=== PATIENT | male | born 1980 | race Caucasian/White ===

== ENCOUNTER 2025-05-08 01:42 | Emergency (ER) | payer OTHER, SELFPAY ==
[2025-05-08] VITALS (8 sets, daily range): BP systolic 120–144; BP diastolic 83–91; PULSE 95–112; RESP 13–40; TEMP 36.7; O2SAT 93–98; BMI 23.3
--- OUTSIDE RECORDS SUMMARY | 2025-05-08 01:46 | XMS_ITS | Clinical Summary ---
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 25 Tablet 4 Active methylPREDNISolo ne (Medrol (Paul)) 4 mg tabletIndication s:Cough, unspecified type,Wheezing,SO B (shortness of breath) Take by mouth as instructed per packaging. 21 Tablet 5 Active albuterol HFA 90 mcg/actuation inhalerIndicatio ns:Wheezing,SOB (shortness of breath) Inhale 1-2 Puffs by mouth every 4 hours if needed for Shortness Of Breath or Wheezing. 1 Each 5 Active Active Problems Problem Noted Date Diagnosed Date SCREENING FOR VENEREAL DISEASE 04/24/2001 TOBACCO USE WARTS - NON GENITAL Immunizations Immunization Administration Dates Next Due DTP 03/29/1984,07/29/1982,05/27/1982 MMR 03/29/1984 Oral Polio Vaccine 03/29/1984,05/27/1982 Family History Medical History Relation Name Comments Hyperlipidemia Father Relation Name Status Comments Father Alive Mother Alive Social History Tobacco Use Types Packs/Day Years Used Date Smoking Tobacco: Every Day Cigarettes Smokeless Tobacco: Never Tobacco Cessation:Ready to Q uit: Not Asked; Counseling Given: Not Answered Alcohol Use Standard Drinks/Week Comments Yes 0 (1 standard drink = 0.6 oz pur e alcohol) 2-3 beers/night Social Connections Answer Date Recorded Do you often feel lonely or isolated from those around you? 0 06/22/2024 Financial Resource Strain Answer Date R ecorded Difficulty of Paying Living Expenses 3 08/18/2024 Difficulty of Paying Living Expenses Not on file 08/18/2024 Food Insecurity Answer Date Recorded Do you worry your food will run out before you are able to buy more? 1 06/22/2024 Transportation Needs Answer Date Record ed Does lack of transportation keep you from medica l appointments? 1 06/22/2024 Does lack of transportation keep you from work, meetings or getting things that you need? 1 06/22/2024 Housing Stability Answer Date Recorded What is your housing situation today? 1 06/22/2024 Utilities Answer Date Recorded Do you have trouble paying f or utilities (for example, heat, electricity, water, phone)? 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 Gender Identity Not on file Sexual Orientation Not on file Obstetrics History Last Filed Vital Signs Vital Sign Reading Time Taken Comments Blood Pressure 129/89 12/16/2024 3:29 PM CDT Pulse 83 12/16/2024 4:17 PM CDT Temperature 36.4 C (97.5 F) 12/16/2024 3:29 PM CDT Respiratory Rate 16 12/16/2024 3:29 PM CDT Oxygen Saturation 95% 12/16/2024 4:17 PM CDT Inhaled Oxygen Concentration - - Weight 70.3 kg (155 lb) 12/16/2024 3:29 PM CDT Height 168.9 cm (5' 6.5) 08/29/2009 4:39 PM 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 Body Mass Index - - Plan of Treatment Health Maintenance Due Date Last Done Comments Tetanus booster 1992 Depression screening for age 12+ 1993 HIV for age 15-65 1996 BMI (ht and wt on same day) for age 18+ 12/28/1999 Hepatitis C screening for age 18-79 12/28/1999 Hepatitis B series for 19+ ( 1 of 3 - 19+ 3-dose series) 2000 Pneumococcal series for age 6-49 (1 of 2 - PCV) 2000 HPV series for age 9-45 (1 - 3-dose SCDM series) 2008 Lipids for age 35-44 2016 COVID-19 vaccine series ( season) 2025 06/17/2021, 05/21/2021 Influenza Vaccine (#1) 2025 RSV vaccine for adults or pr egnancy (1 - 1-dose 75+ series) 2056 Insurance [facility] Care Teams Commodities Manager Relationship Specialty Start Date End Date Pcp, No . PCP - General 08/29/09
--- OUTSIDE RECORDS SUMMARY | 2025-05-08 01:46 | XMS_ITS | Clinical Summary ---
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
--- NOTE | 2025-05-08 02:00 | CRLHL7_ITS ---
For Patients: As a result of the Century Cures Act, medical imaging exams and procedure reports are released immediately into your electronic medical record. You may view this report before your referring provider. If you have questions, please contact your health care provider. Indication: Trauma Technique: Noncontrast CT through the thoracic spine with multiplanar reformats Comparison: None Findings: Alignment: Mild leftward spinal curvature. Bones: No acute thoracic vertebral fracture. No lytic or blastic lesion. Thoracic levels: No acute abnormality appreciated. Mild spondylosis. Soft tissues: No acute paraspinal abnormality appreciated. Impression: No acute thoracic vertebral abnormality appreciated. Please note that all CT scans at this facility use dose modulation, iterative reconstruction, and/or weight-based dosing when appropriate to reduce radiation dose to as low as reasonably achievable. Dictated by Davon Cruz MD @ 05/08/2025 3:03:37 AM (Electronically Signed)
--- NOTE | 2025-05-08 02:00 | CRLHL7_ITS ---
For Patients: As a result of the Century Cures Act, medical imaging exams and procedure reports are released immediately into your electronic medical record. You may view this report before your referring provider. If you have questions, please contact your health care provider. Indication: Trauma Technique: Noncontrast CT through the cervical spine with multiplanar reformats Comparison: None Findings: Alignment: No significant malalignment appreciated. Bones: No acute fracture. No lytic or blastic lesion. Cervical levels: No acute abnormality appreciated. Fzaz-lo-ofcelkti spondylosis. Soft tissues: No acute abnormality appreciated. Impression: No acute abnormality appreciated. Please note that all CT scans at this facility use dose modulation, iterative reconstruction, and/or weight-based dosing when appropriate to reduce radiation dose to as low as reasonably achievable. Dictated by Davon Cruz MD @ 05/08/2025 2:49:27 AM (Electronically Signed)
--- NOTE | 2025-05-08 02:00 | CRLHL7_ITS ---
For Patients: As a result of the Century Cures Act, medical imaging exams and procedure reports are released immediately into your electronic medical record. You may view this report before your referring provider. If you have questions, please contact your health care provider. Indication: Trauma Technique: Postcontrast CT of the chest, abdomen, and pelvis with multiplanar reformats following 72 mL Isovue 370 IV. Comparison: None Findings: Chest: Lungs: No consolidation. No effusion. No pneumothorax. Mediastinum: No acute abnormality appreciated. Lymph nodes: No gross lymphadenopathy. Soft tissues: No acute abnormality appreciated. Bones: No acute abnormality appreciated. Abdomen and Pelvis: Hepatobiliary: No significant parenchymal abnormality is appreciated. Spleen: Unremarkable. Pancreas: No acute abnormality appreciated. Adrenal glands: No acute abnormality appreciated. Kidneys: No significant parenchymal abnormality appreciated. No visualized calculi. No hydronephrosis. Bowel: No obstruction. No focal perienteric or pericolonic stranding is appreciated. The appendix is visualized and appears unremarkable. Vascular: No acute abnormality appreciated. Trace atherosclerosis. Lymph nodes: No gross lymphadenopathy. Peritoneum: No free air. No free fluid. : No acute abnormality appreciated. Soft tissues: No acute abnormality appreciated. Bones: No acute fracture. No lytic or blastic lesion. Impression: No acute abnormality appreciated. Please note that all CT scans at this facility use dose modulation, iterative reconstruction, and/or weight-based dosing when appropriate to reduce radiation dose to as low as reasonably achievable. Dictated by Davon Cruz MD @ 05/08/2025 3:09:15 AM (Electronically Signed)
--- NOTE | 2025-05-08 02:00 | CRLHL7_ITS ---
For Patients: As a result of the Century Cures Act, medical imaging exams and procedure reports are released immediately into your electronic medical record. You may view this report before your referring provider. If you have questions, please contact your health care provider. Indication: Trauma Technique: Noncontrast CT through the lumbar spine with multiplanar reformats Comparison: None Findings: Alignment: No significant malalignment appreciated. Bones: No acute lumbar vertebral fracture. No lytic or blastic lesion. Lumbar levels: No acute abnormality appreciated. Mild spondylosis. Soft tissues: No acute paraspinal abnormality appreciated. Impression: No acute lumbar vertebral abnormality appreciated. Please note that all CT scans at this facility use dose modulation, iterative reconstruction, and/or weight-based dosing when appropriate to reduce radiation dose to as low as reasonably achievable. Dictated by Davon Cruz MD @ 05/08/2025 3:04:29 AM (Electronically Signed)
--- NOTE | 2025-05-08 02:00 | CRLHL7_ITS ---
For Patients: As a result of the Cures Act, medical imaging exams and procedure reports are released immediately into your electronic medical record. You may view this report before your referring provider. If you have questions, please contact your health care provider. Indication: Trauma Technique: Noncontrast CT through the head with multiplanar reformats Comparison: None Findings: Brain: No acute hemorrhage. No acute infarct. No significant mass effect or midline shift. No gross evidence of a mass lesion or cerebral edema. Ventricles: No acute abnormality appreciated. Orbits, sinuses, mastoids: No acute abnormality appreciated. Calvarium and soft tissues: Left frontal scalp contusion no underlying fracture appreciated. Impression: Left frontal scalp contusion, no other acute abnormality appreciated. Please note that all CT scans at this facility use dose modulation, iterative reconstruction, and/or weight-based dosing when appropriate to reduce radiation dose to as low as reasonably achievable. Dictated by Davon Cruz MD @ 05/08/2025 2:45:52 AM (Electronically Signed)
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
[2025-05-08 02:07] LABS: Hematocrit* 44.0 % (37.0-53.0); Hemoglobin* 15.1 gm/dL (13.5-17.5); Immature Granulocytes Abs Auto 0.03 K/uL (0.00-0.30); Immature Granulocytes Pct Auto 0.3 %; Lymphocytes Absolute Auto 3.20 K/uL (0.90-2.90); Mean Corpuscular HGB Conc 34 gm/dL (32-36); Mean Corpuscular Hemoglobin 34 pg (26-34); Mean Corpuscular Volume 98 fL (80-100); RDW Coefficient of Variation % 12.1 % (11.5-15.5); Red Blood Count* 4.47 m/uL (4.30-5.90); White Blood Count* 9.44 K/uL (4.50-11.00)
[2025-05-08 02:11] LABS: Slide Review Reflex No
[2025-05-08 02:15] LABS: Albumin* 4.8 g/dL (3.3-5.0); Chloride* 102 mmol/L (96-114); Potassium* 3.7 mmol/L (3.6-5.1); Sodium* 141 mmol/L (135-149)
[2025-05-08 02:17] LABS: Blood Urea Nitrogen* 10 mg/dL (5-24); Creatinine* 0.7 mg/dL (0.5-1.5); Est. Creatinine Clearance* 127.22; Estimated Glomerular Filt Rate 117 ml/min
[2025-05-08 02:18] LABS: Alanine Aminotransferase* 42 U/L (4-50); Alkaline Phosphatase* 63 U/L (40-150); Anion Gap 14 mEq/L (7-15); Aspartate Amino Transferase* 63 U/L (12-35); Bilirubin Total* 0.5 mg/dL (0.1-1.5); Calcium* 8.8 mg/dL (8.4-10.6); Carbon Dioxide* 25 mmol/L (20-32); Glucose* 111 mg/dL (60-115); INR 0.90 (0.91-1.10); Prothrombin Time 12.9 Seconds; Total Protein* 8.5 g/dL (6.0-8.3)
[2025-05-08 02:28] LABS: Ethanol* 0.31 % (0.01-0.03)
--- NOTE | 2025-05-08 02:45 | ED.NURSE ---
pt wounds cleaned and irrigated.
--- NOTE | 2025-05-08 03:01 | ED.NURSE ---
pt refused to use urinal. pt wanted to walk and not use bedside urinal. pt walked to restroom.
[2025-05-08] MEDS: TETANUS/DIPHTH/PERTUSSIS 0.5 ML SYRINGE IM (03:50)
--- NOTE | 2025-05-08 03:56 | ED.NURSE ---
pt discharged with parents.
== END 2025-05-08 03:55 | disposition home or self-care (01) ==
PROVIDERS: Emergency Provider Emergency Medicine; PCP Family Medicine
DX: S01.112A Laceration without foreign body of left eyelid and periocular area, initial encounter (principal); S90.512A Abrasion, left ankle, initial encounter; S60.512A Abrasion of left hand, initial encounter; S60.511A Abrasion of right hand, initial encounter; V86.55XA Driver of 3- or 4- wheeled all-terrain vehicle (ATV) injured in nontraffic accident, initial encounter; Z23 Encounter for immunization
CPT/HCPCS: 12013; 36415; 70450; 70486; 71260; 72125; 72128; 72131; 74177; 80053; 82077; 85025; 85610; 90471; 90715; 99285; 99291; Q9967